=== PATIENT | female | born 1970 | race Caucasian/White ===

== ENCOUNTER 2022-05-07 17:53 | Emergency (ER) | payer BC | END 2022-05-07 19:17 | disposition home or self-care (01) | LOC: DL.ED 17:53 | DX: S50.01XA Contusion of right elbow, initial encounter (principal); I10 Essential (primary) hypertension; E11.9 Type 2 diabetes mellitus without complications; Z90.49 Acquired absence of other specified parts of digestive tract; Z79.82 Long term (current) use of aspirin; Z79.899 Other long term (current) drug therapy; Z79.4 Long term (current) use of insulin; W18.30XA Fall on same level, unspecified, initial encounter | CPT/HCPCS: 73030-RT; 73080-RT; 99283 ==

== ENCOUNTER 2022-08-02 05:24 | Day surgery (SDC) | payer BC ==
[2022-08-02] MEDS ORDERED: Propofol 200 MG/20 ML SDV IV ONE (05:25)
[2022-08-02] MEDS ORDERED: Lidocaine 1% 5 ML VIAL IV ONE (05:25)
[2022-08-02] MEDS ORDERED: Dextrose 5%-0.45% NaCl 1,000 ML IV SCH (05:30)
[2022-08-02] MEDS ORDERED: Sodium Chloride 0.9% 10 ML Syringe FLUSH PRN (05:30)
== END 2022-08-02 08:27 | disposition home or self-care (01) ==
LOC: DL.ENDO 05:24
PROVIDERS: ATTEND Internal Medicine Gastroenterology
DX: Z12.11 Encounter for screening for malignant neoplasm of colon (principal); D12.3 Benign neoplasm of transverse colon; K64.4 Residual hemorrhoidal skin tags; K64.8 Other hemorrhoids; E66.09 Other obesity due to excess calories; I10 Essential (primary) hypertension; E78.5 Hyperlipidemia, unspecified; E11.9 Type 2 diabetes mellitus without complications; Z98.890 Other specified postprocedural states; Z68.41 Body mass index [BMI] 40.0-44.9, adult
CPT/HCPCS: 00813; 45385; J2704; J7042; J3490